=== PATIENT | female | born 1955 ===

== ENCOUNTER 2021-11-22 08:00 | Outpatient (CLI) | payer SELFPAY ==
[2021-11-22 16:43] LABS: BASOPHILS % (AUTO) 5.6 %; EOSINOPHILS % (AUTO) 2.5 %; HCT - HEMATOCRIT 28.2 % (37.0-47.0); HGB - HEMOGLOBIN 8.8 g/dL (12.0-16.0); LYMPHOCYTES % (AUTO) 6.6 %; MEAN CORPUSCULAR HEMOGLOBIN 31.7 pg (27.0-31.0); MEAN CORPUSCULAR HGB CONC 31.2 g/dL (32.0-36.0); MEAN CORPUSCULAR VOLUME 101.4 fL (81.0-99.0); MEAN PLATELET VOLUME 11.1 fL (7.9-10.8); NEUTROPHILS % (AUTO) 58.4 %; PLT - PLATELET COUNT 710 10^3/uL (130-450); RED BLOOD COUNT 2.78 10^6/uL (4.20-5.40); RED CELL DISTRIBUTION WIDTH 23.7 % (12.0-15.0)
[2021-11-22 16:58] LABS: ALBUMIN 3.9 g/dL (3.2-5.5); ALBUMIN/GLOBULIN RATIO 1.3 (1.0-2.2); ALKALINE PHOSPHATASE 74 IU/L (42-121); ALT ALANINE AMINOTRANSFERASE 51 IU/L (10-60); AST ASPARTATE AMINOTRANSFERASE 28 IU/L (10-42); BILIRUBIN,TOTAL 0.4 mg/dL (0.2-1.0); BUN - BLOOD UREA NITROGEN 30 mg/dL (6-20); CALCIUM 9.3 mg/dL (8.5-10.3); CARBON DIOXIDE - CO2 25 mmol/L (21-32); CHLORIDE 97 mmol/L (101-111); CK- CREATINE KINASE 43 IU/L (22-269); GFR - MDRD 55 (>89); GLUCOSE 79 mg/dL (70-100); POTASSIUM 5.4 mmol/L (3.5-5.0); SODIUM 133 mmol/L (135-145)
[2021-11-22 17:07] LABS: CRP - C-REACTIVE PROTEIN < 1.0 mg/dL (0-1.0); WHITE BLOOD COUNT 44.6 x10^3/uL (4.8-10.8)
[2021-11-22 17:08] LABS: ABNORMAL LYMPHS % (MANUAL) 0 %
[2021-11-22 17:16] LABS: BAND NEUTROPHILS % (MANUAL) 3 %; EOSINOPHILS # (MANUAL) 1.3 10^3/uL (0-0.7); LYMPHOCYTES # (MANUAL) 4.9 10^3/uL (1.5-3.5); LYMPHOCYTES % (MANUAL) 11 %; METAMYELOCYTES % (MANUAL) 6 %; MONOCYTES # (MANUAL) 3.1 10^3/uL (0.0-1.0); MYELOCYTES % (MANUAL) 4 %; NEUTROPHILS # (MANUAL) 30.8 10^3/uL (1.5-6.6); RBC MORPHOLOGY (MULTIPLE) 3+ ANISOCYTOSIS (NORMAL)
[2021-11-22 17:17] LABS: DIFFERENTIAL COMMENT MANUAL DIFFERENTIAL; PLATELET ESTIMATE, MANUAL INCREASED (>450,000) (NORMAL); PLATELET MORPHOLOGY 1+ GIANT PLATELETS (NORMAL)
== END 2021-11-22 23:59 | disposition home or self-care (01) ==
LOC: LAB.R 08:00
PROVIDERS: ATTEND Internal Medicine Infectious Disease
DX: J18.9 Pneumonia, unspecified organism (principal); M86.679 Other chronic osteomyelitis, unspecified ankle and foot
CPT/HCPCS: 80053; 82550; 85025; 86140